=== PATIENT | male | born 1985 | race Caucasian/White ===

== ENCOUNTER 2019-07-13 12:59 | Outpatient (CLI) | payer OTHER, SELFPAY ==
--- NOTE | ~2019-07-13 | XR_ITS ---
EXAMINATION: XR knee LT min 4V DATE: 07/13/2019 13:22 INDICATION: Left knee pain. Injury. TECHNIQUE: 4 views of left knee were obtained. COMPARISON: None. FINDINGS: Bone alignment is normal. No fracture. Joint spaces are well maintained. There is no knee j oint effusion. IMPRESSION: 1. Normal left knee. Reviewed, dictated and finalized at location A. IMPRESSION: 1. Normal left knee.
== END 2019-07-13 13:00 | disposition home or self-care (01) ==
LOC: ANHIMG 13:07
PROVIDERS: PCP Family Medicine; Visit Provider Family Medicine
DX: M25.562 Pain in left knee (principal)
CPT/HCPCS: 73564

== ENCOUNTER 2019-07-24 06:49 | Outpatient (CLI) | payer OTHER, SELFPAY ==
--- NOTE | ~2019-07-24 | MR_ITS ---
EXAMINATION: MR knee LT wo con DATE: 07/24/2019 07:34 INDICATION: Generalized left knee pain. Injury 10 days ago. TECHNIQUE: Magnetic resonance imaging (MRI) of the left knee was performed without intravenous contra st. Sequences included axial PD-weighted FS FSE, coronal PD-weighted FSE and PD-weighted FS FSE, sagi ttal PD-weighted FSE, and sagittal T2-weighted FS FSE. COMPARISON: Left knee radiograph 07/13/2019 FINDINGS: Medial compartment: There is an undersurface horizontal tear of posterior horn of medial meniscus. There is shallow parti al-thickness cartilage loss of femoral condyle involving the medial articular surface. Tibial cartila ge is normal. Lateral compartment: Lateral meniscus is normal. Lateral compartment cartilage is normal. Patellofemoral compartment: Patellar cartilage is normal. Trochlear cartilage is normal. Ligaments and tendons: Anterior cruciate ligament demonstrates proximal thickening with increased signal intensity, consiste nt with partial tear. Posterior cruciate ligament is normal. Medial collateral ligament and lateral c ollateral ligament complex are normal. The patellar tendon is normal. Fluid: There is a small knee joint effusion. Osseous/other: There is bone marrow edema of posterior aspect of lateral tibial condyle, consistent with contusion. IMPRESSION: 1. Partial tear of anterior cruciate ligament. 2. Mild medial compartment chondrosis. 3. Tear of medial meniscus. 4. Small knee joint effusion. Reviewed, dictated and finalized at location A.
== END 2019-07-24 06:50 | disposition home or self-care (01) ==
PROVIDERS: PCP Family Medicine; Visit Provider Family Medicine
DX: S83.242A Other tear of medial meniscus, current injury, left knee, initial encounter (principal); X58.XXXA Exposure to other specified factors, initial encounter; M25.462 Effusion, left knee
CPT/HCPCS: 73721

== ENCOUNTER → 2021-08-07 14:10 | Outpatient (CLI) | payer OTHER, SELFPAY ==
--- NOTE | ~2021-08-07 | XR_ITS ---
XR knee RT min 4V DATE: 08/07/2021 14:30 INDICATION: Right medial knee pain for 8 months TECHNIQUE: Lateral, sunrise, PA and standing AP views COMPARISON: None FINDINGS: No fracture or dislocation or joint effusion. Joint spaces are preserved. No radiopaque int ra-articular loose body or chondrocalcinosis. No periosteal reaction or bone destruction. IMPRESSION: Negative Reviewed, dictated and finalized at location B. IMPRESSION: Negative
== END ==
PROVIDERS: PCP Family Medicine; Visit Provider Family Medicine
DX: M25.561 Pain in right knee (principal)
CPT/HCPCS: 73564

== ENCOUNTER → 2022-04-19 17:14 | Outpatient (CLI) | payer OTHER, SELFPAY ==
--- NOTE | ~2022-04-19 | XR_ITS ---
EXAMINATION: XR knee RT 3V DATE: 04/19/2022 17:36 INDICATION: Right knee pain TECHNIQUE: Anteroposterior, 2 oblique and crosstable lateral views of the right knee were obtained COMPARISON: 08/07/2021 FINDINGS: Alignment is normal. No fracture. Joint spaces appear normal on nonweightbearing imaging. Couple sma ll bone islands at the lateral tibial plateau and lateral femoral condyle. No joint effusion/layering lipohemarthrosis. Soft tissues are unremarkable. IMPRESSION: 1. Negative right knee radiographs. Reviewed, dictated and finalized at location A. NCE JOB TITLES
== END ==
PROVIDERS: PCP Family Medicine; Visit Provider Family Medicine
DX: M25.561 Pain in right knee (principal); G89.29 Other chronic pain
CPT/HCPCS: 73562

== ENCOUNTER → 2022-04-27 12:40 | Outpatient (CLI) | payer OTHER, SELFPAY ==
--- NOTE | ~2022-04-27 | MR_ITS ---
MRI of the right knee Clinical history: Internal arrangement Technique: Coronal proton density and proton density-weighted images, sagittal proton-density and T2 fat-sat images, and axial proton-density fat-saturated images were acquired. Findings: Anterior and posterior cruciate ligaments are intact. Medial collateral ligament and the la teral collateral ligament complex are intact. Popliteus tendon is intact. There is horizontal/undersurface tear of the posterior horn of the medial meniscus. Lateral meniscus is intact, without evidence of tear. Articular cartilage is well preserved throughout the knee. Bone marrow signals are unremarkable. Extensor mechanism is intact. No significant joint effusion. Minimal Swift's cyst present. There is a multiseptated ganglion cyst posterior to the PCL extending towards the popliteal vessels in the post erior midline, measuring up to approximately 2.0 x 2.4 x 3.9 cm in extent (series 4 image 6 for examp le, series 6 image 16). Impression: Horizontal/undersurface tear of the posterior horn of the medial meniscus. Multiseptated/multiloculated ganglion cyst posterior to the PCL measuring 2.0 x 2.4 x 3.9 cm, as deta iled above. Reviewed, dictated and finalized at location . Impression: Horizontal/undersurface tear of the posterior horn of the medial meniscus. Multiseptated/multiloculated ganglion cyst posterior to the PCL measuring 2.0 x 2.4 x 3.9 cm, as detailed above.
== END ==
PROVIDERS: PCP Family Medicine; Visit Provider Family Medicine
DX: M23.51 Chronic instability of knee, right knee (principal)
CPT/HCPCS: 73721